=== PATIENT | female | born 1980 ===

== ENCOUNTER 2023-08-31 10:30 | Emergency (ER) | payer OTHER, SELFPAY ==
--- NOTE | ~2023-08-31 | US_ITS ---
EXAMINATION: US ABDOMEN LIMITED CLINICAL INFORMATION: Right upper quadrant pain. COMPARISON: None available. TECHNIQUE: Real-time imaging of the right gallbladder and common bile duct. FINDINGS: GALLBLADDER: Multiple gallbladder polyps are seen the largest measuring 6 x 4 x 3 mm. The gallbladder is physiologically distended without evidence of stones, sludge, wall thickening or pericholecystic fluid. COMMON BILE DUCT: Normal in caliber measuring 0.5 cm in diameter. US/US abdomen limited IMPRESSION: Multiple gallbladder polyps the largest measuring 6 mm. Follow-up is recommended in one year.
--- NOTE | ~2023-08-31 | CT_ITS ---
EXAMINATION: CT ABDOMEN AND PELVIS WITHOUT CONTRAST CLINICAL INFORMATION: Upper abdominal pain COMPARISON: None available. TECHNIQUE: Multidetector volumetric imaging was performed from the superior aspect of the liver through the pubic symphysis. Sagittal and coronal reformatted images were obtained on the technologist's workstation. This CT examination was performed using dose optimization techniques as appropriate, variously including the following: *Automated exposure control *Adjustment of mA and/or kV according to patient size (this includes techniques or standardized protocols for targeted exams where dose is matched to indication/reason for exam; i.e. extremities or head) *Use of iterative reconstruction technique DLP: 412 mGy-cm FINDINGS: LUNG BASES: The visualized lung bases are unremarkable. LIVER, GALLBLADDER, AND BILIARY TREE: The liver is normal in size, shape, and attenuation. No focal hepatic lesion or biliary ductal dilatation is present. There appears to be multiple stones within the gallbladder. No gross gallbladder distention, wall thickening or inflammatory stranding seen. No biliary duct dilatation seen. PANCREAS: Question some mild peripancreatic inflammatory stranding and cannot exclude acute pancreatitis. No focal fluid collections or abscess seen. SPLEEN: Unremarkable. ADRENAL GLANDS: Unremarkable. KIDNEYS AND URETERS: The kidneys are normal in size, shape, and attenuation. No hydronephrosis, hydroureter, or calculi seen. No perinephric stranding. BLADDER: Unremarkable. GASTROINTESTINAL TRACT: The small and large bowel are unremarkable. The appendix is unremarkable. ABDOMINAL WALL: No significant hernia is appreciated. LYMPH NODES: Normal. VASCULAR: Unremarkable. PELVIC VISCERA: Enlarged fibroid uterus. OSSEOUS STRUCTURES: Unremarkable. CT/CT abdomen pelvis wo IV con IMPRESSION: 1. Question some mild peripancreatic inflammatory stranding and cannot exclude acute pancreatitis. No focal fluid collections or abscess seen. 2. Cholelithiasis. No evidence of acute cholecystitis. 3. Enlarged fibroid uterus.
[2023-08-31 11:30] VITALS: BP 124/74; PULSE 103; RESP 18; TEMP 37.1; O2SAT 99; BMI 21.9
--- NOTE | 2023-08-31 11:31 | ED_ITS ---
HPI - Nausea/Vomiting/Diarrhea General Chief complaint: Nausea/Vomiting/Diarrhea Stated complaint: Upper Abd Pain Vomiting Time Seen by Provider: 08/31/23 21:31 Source: patient Mode of arrival: ambulatory Limitations: no limitations History of Present Illness HPI Narrative: Patient Been having upper abdominal pain with nausea vomiting diarrhea since yesterday unable to eat much no history of similar pain in the past no fever no chills urinary symptoms no alcohol use no history of pancreatitis in the past Related Data Previous Rx's ?Medication ?Instructions ?Recorded ondansetron 4 mg disintegrating 4 mg PO Q6-8H PRN nausea and 09/01/23 tablet vomiting #10 tabs Allergies Allergy/AdvReac Type Severity Reaction Status Date / Time No Known Allergies Allergy Verified 08/31/23 11:32 Review of Systems 2 Review of Systems: Yes all other systems are reviewed and are negative [facility] Social History Social History Smoked in Last 30 Days: No Use of substances other than those prescribed or required for medical reasons: No Advance Directives: No Advance Directives Information Provided: No Patient : No Physical Exam 2 Vital Signs: Vital Signs: Last Vital Signs Temp 98.0 F 08/31/23 22:00 Pulse 85 08/31/23 22:00 Resp 16 08/31/23 22:00 BP 119/66 08/31/23 22:00 Pulse Ox 100 08/31/23 22:00 O2 Del Method Room Air 08/31/23 22:00 BMI result Body Mass Index 21.9 Appearance: Alert. Oriented X3. No acute distress. Eyes:no pallor or icterus ENT: Pharynx normal. Oral Mucosa moist Neck: Normal inspection. Neck supple. CVS: Normal heart rate and rhythm. Pulses normal. Respiratory: No respiratory distress. Equal air entry bilateral, no wheezing/rales/rhonchi Abdomen: Soft tender in epigastric and right upper quadrant with guarding no rebound tenderness Bowel sounds are present, no mass palpable, no CVA tenderness Skin: Skin warm and dry. Normal skin color. Normal skin turgor. Extremities: No lower extremity edema. No calf tenderness Neuro: Oriented X 3. No motor deficit. Course Course Course Narrative: RME:?42 yo female hx of colitis here for eval of epigastric abd pain with assoc nausea and vomiting that began yesterday. denies chance of , s/p hysterectomy. denies fever. denies sick contacts. no recent abx. labs, serology, hcg ordered Full HPI, ROS and PE to be performed by the primary ED provider. Medications Administered Discontinued Medications Generic Name Dose Route Start Last Admin Trade Name Freq PRN Reason Stop Dose Admin Acetaminophen 650 mg 08/31/23 16:28 08/31/23 16:35 Acetaminophen 325 Mg Tablet PO 08/31/23 16:29 650 mg ONCE ONE Administration Famotidine 20 mg 08/31/23 21:38 08/31/23 22:04 Famotidine/Pf 20 Mg/2 Ml Vial IVPUSH 08/31/23 21:39 20 mg ONCE ONE Administration Sodium Chloride 1,000 mls @ 999 mls/hr 08/31/23 21:38 08/31/23 23:46 Ns IV 08/31/23 22:38 Infused .Q1H1M ONE Infusion Ketorolac Tromethamine 30 mg 08/31/23 21:38 08/31/23 22:04 Ketorolac Tromethamine 30 Mg/Ml Vial IVPUSH 08/31/23 21:39 30 mg ONCE ONE Administration Medical Decision Making Medical Decision Making [facility] Narrative: Patient with upper abdominal pain with nausea vomiting possibility of gallstones/gastroenteritis/pancreatitis with no history of same in the past CT scan shows right inflammation of the pancreas but lipase level was normal ultrasound done which negative for gallstones showed some polyps no signs of acute cholecystitis patient feeling much better after IV hydration liver enzymes are normal CBC normal Differential Diagnosis Differential Diagnoses: The differential diagnosis associated with the presentation includes Cholecystitis/pancreatitis/cholelithiasis/UTI Admission/Observation Consideration of admission/observation: Escalation of care including admission/observation considered Lab Data [facility] Lab Attestation statement: I reviewed the patient's lab results. 08/31/23 11:51 08/31/23 11:51 Labs: Lab Results 08/31/23 08/31/23 Range/Units 11:51 16:36 WBC 8.9 (4.8-10.8) X10*3/uL RBC 4.04 L (4.20-5.50) X10*6/uL Hgb 10.3 L (12.0-16.0) g/dl Hct 32.5 L (37.0-47.0) % MCV 80.4 (80.0-98.0) fL MCH 25.5 L (27.0-33.0) pg MCHC 31.7 (31.0-35.0) g/dl RDW 16.3 H (11.0-16.0) % Plt Count 421 H (160-400) X10*3/uL MPV 9.9 (9.4-12.3) fL Immature Gran % (Auto) 0.6 H (0.0-0.4) % Neut % (Auto) 83.1 H (45-73) % Lymph % (Auto) 9.0 L (20-40) % [place] % (Auto) 7.0 (2-11) % Eos % (Auto) 0.1 (0-4) % Baso % (Auto) 0.2 (0-2) % Lymph # (Auto) 0.8 L (1.2-4.9) X10*3/uL [place] # (Auto) 0.6 (0.1-1.2) X10*3/uL Eos # (Auto) 0.0 (0.0-0.4) X10*3/uL Baso # (Auto) 0.0 (0.0-0.2) X10*3/uL Abs Immat Gran (auto) 0.05 H (0.00-0.03) X10*3/uL Absolute Neuts (auto) 7.4 (2.0-8.3) x10*3/uL Absolute Nucleated RBC 0.000 (0.0-0.012) X10*3/uL Nucleated RBC % (auto) 0.0 (0.0-0.2) /100WBC Sodium 138 (135-145) mmol/L Potassium 3.7 (3.3-5.1) mmol/L Chloride 106 (96-108) mmol/L Carbon Dioxide 24 (22-29) mmol/L Anion Gap 12 (12-20) BUN 14 (9-16) mg/dL Creatinine 0.82 (0.5-1.4) mg/dL Estim Creat Clear Calc 87.7 Estimated GFR > 60 Random Glucose 98 (60-115) mg/dL Calcium 9.0 (8.4-10.2) mg/dL Magnesium 2.1 (1.6-2.6) mg/dL Total Bilirubin 0.4 (0.0-1.0) mg/dL AST 13 (5-31) U/L ALT 14 (0-31) U/L Alkaline Phosphatase 74 (39-117) U/L Total Protein 8.1 H (6.5-8.0) g/dL Albumin 4.3 (3.5-5.0) g/dL Lipase 13 (8-78) U/L Beta HCG, Quant < 2 mIU/mL Urine Color Yellow Urine Appearance Clear Urine pH 5.5 (5.0-9.0) Ur Specific [place] >= 1.030 H (1.005-1.025) Urine Protein Trace (Neg-Trace) mg/dL Urine Glucose (UA) Negative (Negative) mg/dL Urine Ketones Trace (Negative) mg/dL Urine Blood Negative (Negative) Urine Nitrite Negative (Negative) Ur Leukocyte Esterase Negative (Negative) Influenza Type A (PCR) NEGATIVE (Negative) Influenza Type B (PCR) NEGATIVE (Negative) RSV RNA Qual (PCR) NEGATIVE (Negative) SARS-CoV-2 RNA (RT-PCR) NEGATIVE (Negative) Independent Interpretation I performed an independent interpretation of an: Ultrasound and CT Scan Interpretation: Ultrasound negative for gallstones showed polyps US/US abdomen limited IMPRESSION: Multiple gallbladder polyps the largest measuring 6 mm. Follow-up is recommended in one year. Radiology Impression Discussion of test interpretation with radiology: I have reviewed the radiologist's reading. Radiologist Impression: CT/CT abdomen pelvis wo IV con IMPRESSION: 1. Question some mild peripancreatic inflammatory stranding and cannot exclude acute pancreatitis. No focal fluid collections or abscess seen. 2. Cholelithiasis. No evidence of acute cholecystitis. 3. Enlarged fibroid uterus. Discharge Plan Discharge Clinical Impression: Gastroenteritis, Biliary colic Patient Disposition: Home, Self-Care Instructions: Biliary Colic (ED), Gastroenteritis (ED) Additional Instructions: Drink plenty of fluids Avoid fried food Your gallbladder showed some polyps but no gallstones If you have pain in right upper abdomen may have to follow with surgeon Follow-up with your PCP/surgeon in 1 year to recheck the size of the polyp in your gallbladder Prescriptions: New ondansetron 4 mg tablet,disintegrating 4 mg PO Q6-8H PRN (Reason: nausea and vomiting) Qty: 10 0RF Referrals: Balaji Miranda MD [Physician] - 2 weeks Print Language: Ugandan
[2023-08-31 11:56] LABS: MANUAL DIFF FLAG NO
[2023-08-31 12:04] LABS: Basophils Percent Auto 0.2 % (0-2); Eosinophils Percent Auto 0.1 % (0-4); Hematocrit 32.5 % (37.0-47.0); Hemoglobin 10.3 g/dl (12.0-16.0); Imm Gran Abs Auto 0.05 X10*3/uL (0.00-0.03); Imm Gran Pct Auto 0.6 % (0.0-0.4); Lymphocytes Absolute Auto 0.8 X10*3/uL (1.2-4.9); Mean Corpuscular HGB Conc 31.7 g/dl (31.0-35.0); Mean Corpuscular Hemoglobin 25.5 pg (27.0-33.0); Mean Corpuscular Volume 80.4 fL (80.0-98.0); Mean Platelet Volume 9.9 fL (9.4-12.3); Monocytes Absolute Auto 0.6 X10*3/uL (0.1-1.2); Neutrophils Absolute Auto 7.4 x10*3/uL (2.0-8.3); Neutrophils Percent Auto 83.1 % (45-73); Platelet Count 421 X10*3/uL (160-400); Red Blood Count 4.04 X10*6/uL (4.20-5.50); Red Cell Distribution Width 16.3 % (11.0-16.0); White Blood Count 8.9 X10*3/uL (4.8-10.8)
[2023-08-31 12:21] LABS: Alanine Aminotransferase 14 U/L (0-31); Albumin Level 4.3 g/dL (3.5-5.0); Alkaline Phosphatase 74 U/L (39-117); Anion Gap 12 (12-20); Aspartate Amino Transferase 13 U/L (5-31); Bilirubin Total 0.4 mg/dL (0.0-1.0); Blood Urea Nitrogen 14 mg/dL (9-16); Carbon Dioxide 24 mmol/L (22-29); Chloride 106 mmol/L (96-108); Creatinine Clr Calc Pharmacy 87.7; Estimated Glomerular Filt Rate > 60; Glucose Random 98 mg/dL (60-115); Lipase 13 U/L (8-78); Magnesium 2.1 mg/dL (1.6-2.6); Potassium 3.7 mmol/L (3.3-5.1); Sodium 138 mmol/L (135-145); Total Protein 8.1 g/dL (6.5-8.0)
[2023-08-31 12:23] LABS: HCG Quantitative < 2 mIU/mL
[2023-08-31 12:43] LABS: Influenza A PCR NEGATIVE (Negative); Influenza B PCR NEGATIVE (Negative); Resp Syncy Virus RNA Qual PCR NEGATIVE (Negative); SARS COV2 PCR INHOUSE NEGATIVE (Negative)
[2023-08-31 16:27] VITALS: BP 134/61; PULSE 90; RESP 16; TEMP 36.9; O2SAT 100
[2023-08-31] MEDS: Acetaminophen 325 MG TABLET 650 MG PO (16:35)
[2023-08-31 16:43] LABS: Appearance Urine Clear; Color Urine Yellow; Glucose Urine UA Negative (Negative); Leukocyte Esterase Urine Negative (Negative); Nitrite Urine Negative (Negative); PH 5.5 (5.0-9.0); Specific Gravity - Urine >= 1.030 (1.005-1.025); Urine Blood Negative (Negative); Urine Ketones Trace mg/dL (Negative); Urine Protein Trace mg/dL (Neg-Trace)
[2023-08-31 21:10] VITALS: BP 111/66; PULSE 89; RESP 20; TEMP 36.8; O2SAT 98
[2023-08-31 22:00] VITALS: BP 119/66; PULSE 85; RESP 16; TEMP 36.7; O2SAT 100
[2023-08-31] MEDS: Famotidine/PF 20 MG/2 ML VIAL IVPUSH (22:04)
[2023-08-31] MEDS: Ketorolac Tromethamine 30 MG/ML VIAL IVPUSH (22:04)
[2023-08-31] MEDS: 0.9 % Sodium Chloride 1,000 ML 999 ML IV (22:05)
--- NOTE | 2023-08-31 22:13 | PC.NURSE ---
this rn placed 20g iv in r ac pt tolerated well pt medicated according to roula pt remains in hallway bed pt friend at bedside
[2023-09-01 00:36] VITALS: BP 118/70; PULSE 86; RESP 16; TEMP 36.7; O2SAT 100
== END 2023-09-01 00:45 | disposition home or self-care (01) ==
PROVIDERS: Physician Assistant Medical; Emergency Provider Internal Medicine
DX: K52.9 Noninfective gastroenteritis and colitis, unspecified (principal); K80.50 Calculus of bile duct without cholangitis or cholecystitis without obstruction; R11.2 Nausea with vomiting, unspecified; R93.49 Abnormal radiologic findings on diagnostic imaging of other urinary organs; R10.2 Pelvic and perineal pain; Z11.52 Encounter for screening for COVID-19; Z20.822 Contact with and (suspected) exposure to COVID-19; Z79.899 Other long term (current) drug therapy
CPT/HCPCS: 0241U; 74176; 76705; 80053; 81003; 83690; 83735; 84702; 85025; 96361; 96374; 96375; 99284; J1885

== ENCOUNTER 2023-12-13 10:38 | Outpatient (AMB) | payer OTHER, SELFPAY ==
--- NOTE | 2023-12-13 10:40 | MHC.OFFVIS ---
Vital Signs 12/13/23 10:46 Height 5 ft 7 in Weight 146 lb BMI 22.9 BP 134/83 Blood Pressure Location Rt brachial Position Sitting Pulse 88 Intake Visit Reasons: Gallbladder polyp Intake Note: Patient referred after ER visit in August. Patient c/o: pain on and off. Acid reflux. ABD US and CT: 08-31-2023. Certified Surgical Technician Required: Yes Certified Surgical Technician Name: Shalini DICKEY Accompanied by: Self / Same As Patient Allergies No Known Allergies Allergy (Verified 12/13/23 10:46) HPI Comments Details: PATIENT PRESENTS BECAUSE OF INCIDENTAL FINDING OF GALLBLADDER POLYPS. SHE WAS WORKED UP IN THE EMERGENCY DEPARTMENT FOR EPIGASTRIC DISCOMFORT/HEARTBURN symptoms and had ultrasound and CT scan. The former demonstrated gallbladder polyps. Radiologic recommendation is for follow-up ultrasound of gallbladder polyps and 1 year's time. In the meantime, patient was tolerating her diet. He is having regular bowel habits. Still has epigastric discomfort/heartburn symptoms. She has never seen a refuse and recycling worker for this. Chart was reviewed and patient developed Physical Exam Vital Signs: Last Vital Signs Pulse 88 12/13/23 10:46 BP 134/83 12/13/23 10:46 BMI result Body Mass Index 22.9 GI Other: Abdomen mildly corpulent, soft, benign Assessment & Plan Assessment & Plan (1) Gallbladder polyp: Code(s): K82.4 - Cholesterolosis of gallbladder Category: Surgical (2) Heartburn: Code(s): R12 - Heartburn Category: Surgical Plan 1. Current plan is to arrange for follow-up sonogram of gallbladder in 1 year's time. 2. Will arrange for patient to have gastroenterologic consult regarding her epigastric symptoms. All questions answered. Patient will see me as noted above or p.r.n.. Coding Level of Care Code New Pt Level 4 (82278) Diagnoses Gallbladder polyp K82.4 Heartburn R12
[2023-12-13 10:46] VITALS: BP 134/83; PULSE 88; BMI 22.9
== END 2023-12-13 11:07 | disposition home or self-care (01) ==
PROVIDERS: Visit Provider Surgery
DX: K82.4 Cholesterolosis of gallbladder (principal); R12 Heartburn
CPT/HCPCS: 99203

== ENCOUNTER → 2023-12-13 10:38 | Outpatient (BNVA) | payer OTHER, SELFPAY | PROVIDERS: Visit Provider Surgery ==

== ENCOUNTER 2024-04-23 10:17 | Outpatient (REF) | payer OTHER, SELFPAY ==
[2024-04-23 14:02] LABS: Hematocrit 29.4 % (37.0-47.0); Hemoglobin 9.6 g/dl (12.0-16.0); Mean Corpuscular HGB Conc 32.7 g/dl (31.0-35.0); Mean Corpuscular Volume 79.7 fL (80.0-98.0); Mean Platelet Volume 10.5 fL (9.4-12.3); Platelet Count 470 X10*3/uL (160-400); Red Blood Count 3.69 X10*6/uL (4.20-5.50); Red Cell Distribution Width 16.9 % (11.0-16.0); White Blood Count 8.3 X10*3/uL (4.8-10.8)
[2024-04-23 14:50] LABS: C Reactive Protein 0.21 mg/dL (< or = 0.50)
[2024-04-23 14:58] LABS: TSH reflex Free T4 2.56 uIU/mL (0.32-4.0)
[2024-04-24 07:42] LABS: Immunoglobulin A 289 mg/dL (47-310)
[2024-04-24 14:58] LABS: Transglutaminase IgA <1.0 U/mL
== END 2024-04-23 10:18 | disposition home or self-care (01) ==
LOC: HO.LAB 10:17
PROVIDERS: Visit Provider Internal Medicine
DX: R19.4 Change in bowel habit (principal)
CPT/HCPCS: 36415; 82784; 84443; 85027; 86140; 86364

== ENCOUNTER 2024-04-23 10:17 | Outpatient (AMB) | payer OTHER, SELFPAY ==
--- NOTE | 2024-04-23 10:37 | MHC.OFFVIS ---
Vital Signs 04/23/24 10:39 Height 5 ft 7 in Weight 145 lb 8.081 oz BMI 22.8 BP 130/73 Blood Pressure Location Lt brachial Position Sitting Pulse 100 Intake Visit Reasons: Gastroesophageal reflux disease (GERD) Intake Note: Olga presents in the office as a new patient for GERD. CC: She states that she has a lot of GERD. She states that she has pains in her uterus and some days her stomach is bloated like she is . She states sometimes she will have diarrhea and other times constipation and she has had this for years. Supervisor Partial Denture Department Required: Yes Allergies No Known Allergies Allergy (Verified 04/23/24 10:39) HPI Comments Details: 43 y.o F with PMH of GB polyp who has been referred to GI for following. Pt seens with manager billing. Reports years of mid abd pain with bloating since her hysterectomy which has been getting worse for the past 5 years. Had EGD/colo 9 years ago for GERD and rectal bleeding - was told had esophagitis and HH. Now main issue is post prandial abd pain and bloating. Has pictures before and after bloating which are quite dramatic. Has decreased the amount of food she eats to prevent bloating which hasnt helped. No specific foods identified as triggers. Assoc with fluctuating BMs between constipation and diarrhea. Also describes lower abd pain which gets worse with her menstrual cycle. At that time also notices constipation. CT Abd/pel reviewed: fibroid uterus. No diverticulosis noted. Fam hx: Mat grandmother: CRC at age 80s Father: CRC at age 60 PFSH Surgical History (Updated 04/23/24 @ 10:40 by NOBLE Grimes) Hx of colonoscopy History of esophagogastroduodenoscopy (EGD) Family History (Updated 04/23/24 @ 10:40 by NOBLE Grimes) Paternal Grandmother Colon cancer Father Colon cancer Mother Breast cancer Review of Systems Const All systems reviewed & are unremarkable except as noted in HPI and below Physical Exam Vital Signs: Last Vital Signs Pulse 100 04/23/24 10:39 BP 130/73 04/23/24 10:39 BMI result Body Mass Index 22.8 No apparent distress Nonicteric Abdomen soft, nondistended Alert and oriented x3, normal gait Assessment & Plan Assessment & Plan (1) Heartburn: Code(s): R12 - Heartburn Category: Surgical (2) Change in bowel habit: Code(s): R19.4 - Change in bowel habit Category: Medical (3) Family history of colon cancer: Code(s): Z80.0 - Family history of malignant neoplasm of digestive organs Category: Medical Plan Ddx: GERD, PUD, EoE [place] for upper GI sx. In context of altered bowel habits will also have to take IBD, celiac, malabsorption, SIBO in consideration. Pt also has fam hx of CRC and overdue for colo. Plan: - Omeprazole 20mg once daily empirically for GERD/gastritis/duodenitis - Rifaximin 550 BID for bloating r/o SIBO - Barium swallow - Labs as below - EGD/colo to be booked - PEG prep Rxed and instructions reviewed with the pt. Follow up after scopes Orders: Orders [place] barium swallow Today R12 - Heartburn Calprotectin, Fecal Today R19.4 - Change in bowel habit C Reactive Protein Today R19.4 - Change in bowel habit Immunoglobulin A Today R19.4 - Change in bowel habit TSH reflex Free T4 Today R19.4 - Change in bowel habit Complete Blood Count no Diff Today R19.4 - Change in bowel habit Transglutaminase IgA Today R19.4 - Change in bowel habit Medications: New omeprazole 20 mg PO DAILY 90 days 90 caps 1RF rifaximin 550 mg PO BID 14 days 28 tabs 0RF R14.0 - Abdominal distension (gaseous) peg 3350-electrolytes 236-22.74-6.74 -5.86 gram (Golytely) as per split prep instructions, until fecal effluent is clear 240 mL PO Q10M 4,000 mL 0RF colonoscopy Coding Level of Care Code New Pt Level 4 (00525) Diagnoses Heartburn R12 Change in bowel habit R19.4 Family history of colon cancer Z80.0
[2024-04-23 10:39] VITALS: BP 130/73; PULSE 100; BMI 22.8
== END 2024-04-23 11:48 | disposition home or self-care (01) ==
PROVIDERS: Visit Provider Internal Medicine
DX: R12 Heartburn (principal); R19.4 Change in bowel habit; Z80.0 Family history of malignant neoplasm of digestive organs
CPT/HCPCS: 99204

== ENCOUNTER 2024-12-23 15:50 | Emergency (ER) | payer BC, SELFPAY ==
--- NOTE | ~2024-12-23 | XR_ITS ---
CLINICAL HISTORY: Fever 1 view chest x-ray Comparison: None provided Findings: The lungs are clear. Heart size is normal. No acute fracture. IMPRESSION: 1. No acute findings. This document has been electronically signed by: Han Zuniga MD on 12/23/2024 19:11:31
[2024-12-23 15:54] VITALS: BP 106/58; BP 93/51; PULSE 86; PULSE 90; RESP 18; TEMP 36.5; O2SAT 100; O2SAT 97; BMI 22.7
--- NOTE | 2024-12-23 17:12 | ECG_ITS ---
Test Reason : palpitations Blood Pressure : */* mmHG Vent. Rate : 118 BPM Atrial Rate : 118 BPM P-R Int : 136 ms QRS Dur : 82 ms QT Int : 344 ms P-R-T Axes : 43 60 1 degrees QTcB Int : [address] & T wave abnormality, consider anterior ischemia Abnormal ECG No previous ECGs available Referred By: Ct [facility] Electronically Signed By: FELI MAYS
--- NOTE | 2024-12-23 17:24 | ED_ITS ---
HPI - General Adult General Chief complaint: Nausea/Vomiting/Diarrhea Stated complaint: dizzy, nausea Time Seen by Provider: 12/23/24 17:03 Source: patient and EMS Mode of arrival: EMS Limitations: no limitations History of Present Illness ED Provider: DR. Solitario [facility] narrative: 44-year-old female with otherwise healthy was seen earlier at the urgent care then was transferred to the hospital by ambulance for tachycardia and low blood pressure. 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 Related Data Previous Rx's ?Medication ?Instructions ?Recorded ondansetron 4 mg disintegrating 4 mg PO Q6-8H PRN naus ea and 09/01/23 tablet vomiting #10 tabs omeprazole 20 mg capsule,delayed 20 mg PO DAILY 90 day s #90 caps 04/23/24 release peg 3350-electrolytes 236 240 ml PO Q10M colonoscopy # 4,000 04/23/24 gram-22.74 gram-6.74 gram-5.86 mL gram solution (Golytely) rifaximin 550 mg tablet 550 mg PO BID 14 days #28 ta bs 04/23/24 Allergies Allergy/AdvReac Type Severity Reaction Status Date / Time No Known Allergies Allergy Verified 12/23/24 15:57 Review of Systems 2 Review of Systems: All other systems are reviewed and are negative Constitutional: Reports as per HPI and Reports no additional constitutional complaints Eyes: Reports as per HPI and Reports no additional eye complaints Reports system reviewed and no additional complaints, except as documented Cardiovascular: Reports as per HPI and Reports no additional cardiovascular complaints Respiratory: Reports as per HPI and Reports no additional respiratory complaints Gastrointestinal: Reports as per HPI and Reports no additional gastrointestinal complaints Genitourinary: Reports no additional female genitourinary complaints Musculoskeletal: Reports no additional musculoskeletal complaints Skin/Breast: Reports system reviewed and no additional complaints, except as docu Psychiatric: Reports no additional psychiatric complaints Endocrine: Reports no additional endocrine complaints Hematologic/Lymphatic: Reports no additional hematologic/lymphatic complaints Allergic/Immunologic: Reports no additional allergic/immunologic complaints Reports system reviewed and no additional complaints, except as documented and Reports Abnormal speech present [facility] Past Medical History Surgical History Hx of colonoscopy History of esophagogastroduodenoscopy (EGD) Family History Family History Paternal Grandmother Colon cancer Father Colon cancer Mother Breast cancer Social History Social History Advance Directives: No Advance Directives Information Provided: No Physical Exam ED Vital Signs: Vital Signs - 24 hr 12/23/24 15:54 Temperature 97.7 F Pulse Rate 86 Respiratory Rate 18 Blood Pressure 93/51 L Pulse Oximetry 97 Oxygen Delivery Method Room Air BMI result Body Mass Index 22.7 Vital signs have been reviewed and appear to be correct. Blood pressure elevated. Heart rate normal. Respiratory rate normal. Temperature normal. Oxygen saturation normal. Appearance: Alert. Oriented X3. No acute distress. Head: Normal external exam. Normocephalic. Atraumatic. No Lockwood signs noted. No raccoon eyes noted Eyes: PERRLA. EOMI. Conjunctiva and sclera normal. Eyelids normal. ENT: TM's Normal. Pharynx normal. Uvula midline. Moist mucous membranes. No trismus noted. No drooling noted. No muffled voice noted. Neck: Normal inspection. Neck supple. FROM. No adenopathy. Thyroid Normal. No meningeal signs. No neck mass noted. CVS: Normal heart rate and rhythm. Heart sound normal. No murmurs noted. Pulses normal throughout. Respiratory: No respiratory distress. Painless inspiration. Breath sounds normal. No wheezes/rales/rhonchi noted. Chest nontender. No accessory muscle usage noted or decreased air movement noted. Abdomen: Soft and nontender. Bowel sounds normal in all 4 quadrants. No distention noted. No organomegaly noted. No visible injury noted. Back: No CVA tenderness. Full range of motion noted. Skin: Skin warm and dry. Normal skin color. Normal skin turgor. No rashes/lesions/lacerations noted. Extremities: No lower extremity edema. Extremities exhibit normal range of motion. Extremities nontender. Neuro: Oriented X 3. Cranial nerve exam: II-XII are grossly intact No motor deficit. No sensory deficit. Reflexes normal. Course Reevaluation(s) Reevaluation #1: 44-year-old female came in with upper respiratory symptoms of generalized body ache, sore throat, fever, chills, patient is positive for COVID-19 today. Improvement of tachycardia and palpitation with IV hydration. Time: 18:56 Medications Administered Discontinued Medications Generic Name Dose Route Start Last Admin Trade Name Freq PRN Reason Stop Dose Admin Lactated Ringer's 1,000 mls @ 999 mls/hr 12/23/24 17:15 12/23/24 18:03 Lr IV 12/23/24 18:15 999 mls/hr .Q1H1M VIRGEN Administration Medical Decision Making Differential Diagnosis Differential Diagnoses: The differential diagnosis associated with the presentation includes (Pneumonia, pneumothorax, pleural effusion, severe anemia, , UTI, COVID-19 infection, strep pharyngitis, influenza.) Admission/Observation Consideration of admission/observation: Escalation of care including admission/observation considered Lab Data MDM Lab Attestation statement: I reviewed the patient's lab results. 12/23/24 17:57 12/23/24 17:57 Labs: Lab Results 12/23/24 12/23/24 Range/Units 17:57 18:01 WBC 14.1 H (4.8-10.8) X10*3/uL RBC 4.19 L (4.20-5.50) X10*6/uL Hgb 9.0 L (12.0-16.0) g/dl Hct 28.9 L (37.0-47.0) % MCV 69.0 L (80.0-98.0) fL MCH 21.5 L (27.0-33.0) pg MCHC 31.1 (31.0-35.0) g/dl RDW 19.1 H (11.0-16.0) % Plt Count 420 H (160-400) X10*3/uL MPV 9.6 (9.4-12.3) fL Immature Gran % (Auto) Cancelled Neut % (Auto) Cancelled Lymph % (Auto) Cancelled Johnson % (Auto) Cancelled Eos % (Auto) Cancelled Baso % (Auto) Cancelled Lymph # (Auto) Cancelled Johnson # (Auto) Cancelled Eos # (Auto) Cancelled Baso # (Auto) Cancelled Abs Immat Gran (auto) Cancelled Absolute Neuts (auto) Cancelled Absolute Nucleated RBC 0.000 (0.0-0.012) X10*3/uL Nucleated RBC % (auto) 0.0 (0.0-0.2) /100WBC Neutrophils % (Manual) 87 H (45-73) % Band Neutrophils % 8 H (3-5) % Lymphocytes % (Manual) 2 L (20-40) % Monocytes % (Manual) 3 (2-11) % Abs Neuts (Manual) 13.4 H (2.0-8.3) X10*3/uL Lymphocytes # (Manual) 0.3 L (1.2-4.9) X10*3/uL Monocytes # (Manual) 0.4 (0.1-1.2) X10*3/uL Platelet Estimate SLIGHTLY INCREASED (NORMAL) Plt Morphology Comment NORMAL RBC Morphology NOTED Macrocytosis 1+ (5-14) /OIF Schistocytes 1+ (0-2) /OIF Smear Tech's Comments MANUAL DIFF Sodium 138 (135-145) mmol/L Potassium 3.4 (3.3-5.1) mmol/L Chloride 108 (96-108) mmol/L Carbon Dioxide 21 L (22-29) mmol/L Anion Gap 12 (12-20) BUN 14 (9-16) mg/dL Creatinine 0.87 (0.5-1.4) mg/dL Estim Creat Clear Calc 81.0 Estimated GFR > 60 Random Glucose 156 H (60-115) mg/dL Calcium 8.8 (8.4-10.2) mg/dL Total Bilirubin 0.2 (0.0-1.0) mg/dL Direct Bilirubin < 0.2 (0.0-0.5) mg/dL AST 19 (5-31) U/L ALT 17 (0-31) U/L Alkaline Phosphatase 85 (39-117) U/L Troponin I High Sens 4.3 (<3.5-17.0) ng/L B-Natriuretic Peptide 17 (<100) pg/mL Total Protein 8.1 H (6.5-8.0) g/dL Albumin 4.6 (3.5-5.0) g/dL Lipase 29 (8-78) U/L Urine Color Yellow Urine Appearance Clear Urine pH 5.5 (5.0-9.0) Ur Specific [place] >= 1.030 H (1.005-1.025) Urine Protein Trace (Neg-Trace) mg/dL Urine Glucose (UA) Negative (Negative) mg/dL Urine Ketones Trace (Negative) mg/dL Urine Blood Negative (Negative) Urine Nitrite Negative (Negative) Ur Leukocyte Esterase Negative (Negative) Urine Test NEGATIVE (NEGATIVE) Influenza Type A (PCR) NEGATIVE (Negative) Influenza Type B (PCR) NEGATIVE (Negative) RSV RNA Qual (PCR) NEGATIVE (Negative) SARS-CoV-2 RNA (RT-PCR) POSITIVE A (Negative) S. pyogenes GrpA JONNIE Negative (Negative) Independent Interpretation I performed an independent interpretation of an: Plain X-Ray (Chest: No acute intrathoracic pathology) Radiology Impression Discussion of test interpretation with radiology: I have reviewed the radiologist's reading. Discharge Plan Discharge Clinical Impression: COVID-19 virus infection Patient Disposition: Home, Self-Care Instructions: COVID-19 (Coronavirus Disease 2019) (ED) Additional Instructions: Self quarantine for 5 days, wear face mask at all times, frequent hand washing. Prescriptions: No Action ondansetron 4 mg tablet,disintegrating 4 mg PO Q6-8H PRN (Reason: nausea and vomiting) Qty: 10 0RF omeprazole 20 mg capsule,delayed release(DR/EC) 20 mg PO DAILY 90 Days Qty: 90 1RF rifaximin 550 mg tablet 550 mg PO BID 14 Days Qty: 28 0RF peg 3350-electrolytes [Golytely] 236-22.74-6.74 -5.86 gram recon soln 240 ml PO Q10M Qty: 4000 0RF Rx Instructions: as per split prep instructions, until fecal effluent is clear Stand Alone Forms: Work/School Release Print Language: Mozambican
[2024-12-23] MEDS: Lactated Ringers 1,000 ML 999 ML IV (18:03)
[2024-12-23 18:13] LABS: Hematocrit 28.9 % (37.0-47.0); Hemoglobin 9.0 g/dl (12.0-16.0); Mean Corpuscular HGB Conc 31.1 g/dl (31.0-35.0); Mean Corpuscular Hemoglobin 21.5 pg (27.0-33.0); Mean Corpuscular Volume 69.0 fL (80.0-98.0); NRBC Abs Auto 0.000 X10*3/uL (0.0-0.012); NRBC Pct Auto 0.0 /100WBC (0.0-0.2); Platelet Count 420 X10*3/uL (160-400); Red Blood Count 4.19 X10*6/uL (4.20-5.50); White Blood Count 14.1 X10*3/uL (4.8-10.8)
[2024-12-23 18:14] LABS: Appearance Urine Clear; Glucose Urine UA Negative (Negative); PH 5.5 (5.0-9.0); Specific Gravity - Urine >= 1.030 (1.005-1.025)
[2024-12-23 18:16] LABS: UPreg QC Valid YES
[2024-12-23 18:21] LABS: IDNOW Serial# 55D5AD1C; Strep A Nucleic Acid Negative (Negative)
[2024-12-23 18:35] LABS: B Type Natriuretic Peptide 17 pg/mL (<100)
[2024-12-23 18:38] LABS: Troponin-I High Sensitivity 4.3 ng/L (<3.5-17.0)
[2024-12-23 18:44] LABS: Alanine Aminotransferase 17 U/L (0-31); Albumin Level 4.6 g/dL (3.5-5.0); Alkaline Phosphatase 85 U/L (39-117); Anion Gap 12 (12-20); Aspartate Amino Transferase 19 U/L (5-31); Blood Urea Nitrogen 14 mg/dL (9-16); Calcium 8.8 mg/dL (8.4-10.2); Carbon Dioxide 21 mmol/L (22-29); Chloride 108 mmol/L (96-108); Creatinine Clr Calc Pharmacy 81.0; Estimated Glomerular Filt Rate > 60; Lipase 29 U/L (8-78); Potassium 3.4 mmol/L (3.3-5.1); Sodium 138 mmol/L (135-145); Total Protein 8.1 g/dL (6.5-8.0)
[2024-12-23 18:45] LABS: Band Neutrophils Percent 8 % (3-5); Lymphocytes Absolute Manual 0.3 X10*3/uL (1.2-4.9); Lymphocytes Percent Manual 2 % (20-40); Macrocytosis 1+ (5-14) /OIF; Monocytes Absolute Manual 0.4 X10*3/uL (0.1-1.2); Monocytes Percent Manual 3 % (2-11); Neutrophils Absolute Manual 13.4 X10*3/uL (2.0-8.3); Neutrophils Percent Manual 87 % (45-73); RBC Morphology NOTED; Schistocytes 1+ (0-2) /OIF
[2024-12-23 18:49] LABS: Resp Syncy Virus RNA Qual PCR NEGATIVE (Negative); SARS COV2 PCR INHOUSE POSITIVE (Negative)
[2024-12-23 19:08] LABS: Thyroid Stimulating Hormone 1.27 uIU/mL (0.32-4.0)
[2024-12-23 20:44] VITALS: BP 118/63; PULSE 105; RESP 18; TEMP 37.2; O2SAT 100
== END 2024-12-23 20:30 | disposition home or self-care (01) ==
PROVIDERS: Emergency Provider Emergency Medicine
DX: U07.1 COVID-19 (principal); R42 Dizziness and giddiness; R11.2 Nausea with vomiting, unspecified; R00.2 Palpitations
CPT/HCPCS: 36415; 71045; 80048; 80076; 81003; 81025; 83690; 83880; 84443; 84484; 85007; 85027; 87637; 87651; 93005; 96360; 99284; 99285; J7120

== ENCOUNTER → 2024-12-23 17:12 | Outpatient (BNV) | payer BC, SELFPAY | PROVIDERS: Emergency Provider Emergency Medicine; Visit Provider Internal Medicine | DX: R00.0 Tachycardia, unspecified (principal) | CPT/HCPCS: 93010 ==

== ENCOUNTER → 2024-12-23 18:57 | Outpatient (BNV) | payer BC, SELFPAY | PROVIDERS: Emergency Provider Emergency Medicine; Visit Provider Radiology Diagnostic Radiology | DX: R50.9 Fever, unspecified (principal) | CPT/HCPCS: 71045 ==

== ENCOUNTER 2025-05-20 12:51 | Outpatient (AMB) | payer BC, SELFPAY ==
--- NOTE | 2025-05-20 12:57 | A.OFFPC_ITS ---
Vital Signs 05/20/25 12:58 Height 5 ft 7 in Weight 148 lb BMI 23.2 BP 138/80 Blood Pressure Location Lt brachial Position Sitting Respiration 16 Temp 97.7 F Temp Source Temporal Artery Scan Comment unable to get O2 and HR due to fake nails Intake Visit Reasons: [employer] // back pain, fibroma Frame Hand Required: No Accompanied by: Self / Same As Patient Allergies No Known Allergies Allergy (Verified 05/20/25 12:57) Medication List - Last Reconciled 05/20/25 by Eunice Yates MD omeprazole 20 mg PO DAILY PRN Tobacco use date assessed: 05/20/25 Dental Screening Dental Screen Date: 05/20/25 Did you have a dental visit in the last 12 months?: Yes Did you have a dental problem in the last 6 months where you did not have access to dental care?: No Was dental information given to patient?: Patient has dentist HPI HPI Comments History of Present Illness Details The patient is a 44 year old female with PMH of GERD, uterine fibroid, Gallblader polyps, anemia presenting to [facility] primary care. She reports a long-standing history of acid reflux, which has recently worsened, causing a burning sensation. She takes omeprazole as needed for relief. She is scheduled for a fluoroscopy tomorrow and is pending an EGD and colonoscopy with her GI specialist. She follows with An ultrasound and CT scan last year revealed multiple gallbladder polyps, with the largest measuring 6 mm, and an enlarged uterus with fibroids. A follow-up ultrasound for the polyps recommended for one year later has not been completed. She attributes significant abdominal bloating, abdominal pain, and back pain to her fibroids. The pain is severe during her menses and also occurs between periods, associated with leg pain. Past lab results indicate she has anemia, a diagnosis she was not previously aware of. She also has a history of colitis and low vitamin D, which was 11 on a previous test. The patient's last comprehensive lab work, including cholesterol, was about five years ago. Her mother has a history of breast cancer. She underwent a sterilization procedure at age 29 but still has regular menses. 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 1. Little interest or pleasure in doing things: not at all 2. Feeling down, depressed, or hopeless: several days 3. Trouble falling or staying asleep, or sleeping too much: not at all 4. Feeling tired or having little energy: not at all 5. Poor appetite or overeating: not at all 6. Feeling bad about yourself - or that you are a failure or have let yourself or your family down: not at all 7. Trouble concentrating on things, such as reading the newspaper or watching television: not at all 8. Moving or speaking so slowly that other people could have noticed. Or the opposite - being so fidgety or restless that you have been moving around a lot more than usual: not at all 9. Thoughts that you would be better off or of hurting yourself in some way: not at all Total score: 1 Source: Developed by Drs. Florentin Spencer, Daija Dean, Obi Reyna and colleagues, with an educational mireille from [employer]. Thrive Questionnaire Date Thrive assessed: 05/20/25 I am a: Patient What is your living situation today?: I have a steady place to live Within the past 12 months, did the food you bought not last and you didn't have the money to get more?: Never true Within the past 12 months, did you worry whether your food would run out before you got money to buy more?: Never true Do you have trouble paying for medicines?: No Do you have trouble getting transportation to medical appointments?: No Do you have trouble paying your heating and electricity bill?: No Do you have trouble taking care of your child, family member or friend?: No Do you have trouble with day-to-day activities such as bathing, preparing meals, shopping, managing finances, etc.?: No Are you currently unemployed and looking for a job?: No Are you interested in more education?: Yes Please select the resources that you would like help with: None Currently or been in a relationship where the following occur: No concerns reported THRIVE Score: 0 AUDIT C Alcohol Use Questionnaire (AUDIT-C) 1. How often do you have a drink containing alcohol?: Never 2. How many drinks containing alcohol do you have on a typical day when you are drinking?: 1 or 2 3. How often do you have six or more drinks on one occasion?: Never Total Score: 0 NIXON-7 AMB Questionnaire NIXON-7 Date NIXON - 7 assessed: 05/20/25 Feeling nervous, anxious, or on edge: 1 = Several days Not being able to stop or control worryin = Several days Worrying too much about different things: 2 = More than half the days Trouble relaxin = Several days Being so restless that it is hard to sit still: 0 = Not at all Becoming easily annoyed or irritable: 1 = Several days Feeling afraid as if something awful might happen: 0 = Not at all Total NIXON-7 score (0-4 normal; 5-9 mild; 10-14 moderate; 15-21 severe): 6 Source: Developed by Drs. Florentin Spencer, Daija Dean, Obi Reyna and colleagues, with an educational mireille from [employer]. Review of Systems Const Details: As per HPI. Physical exam (Primary Care) Vital Signs: Last Vital Signs Temp 97.7 F 05/20/25 12:58 Resp 16 05/20/25 12:58 BP 138/80 05/20/25 12:58 BMI result Body Mass Index 23.2 Tobacco/Smoking Status: Tobacco use Status Tobacco use date assessed 05/20/25 05/20/25 13:06 Patient Tobacco Use Status Never used Tobacco 05/20/25 13:06 Tobacco use type Cigarette 05/20/25 13:06 e-Cigarette/Vaping Use Never Used 05/20/25 13:06 PHQ-9: PHQ-9 Score PHQ-9: Total score 1 05/20/25 14:59 Thrive Assessment: Date of Thrive Assessment Date Thrive assessed 05/20/25 05/20/25 13:06 Currently or been in a relationship where the following occur: No concerns re ported Const Other: Pertinent findings are in BOLD GENERAL APPEARANCE NAD, activity normal for age, well developed/ well nourished, no cyanosis, pallor, or diaphoresis. EYES lids/conjunctiva normal. EARS/NOSE/THROAT Mucous membranes moist, nares normal, lips/teeth normal uvula midline without oral pharyngeal erythema, exudate or swelling TMs normal bilaterally. No lymphangitis/lymphedema. HEAD/NECK normocephalic atraumatic, no facial trauma, neck is supple. RESPIRATORY respiratory effort normal, speaks in full sentences, no tripod position, no accessory muscle use. Lungs clear to auscultation without rhonchi, wheezes, rales CARDIAC Regular rate and rhythm, no edema. ABDOMINAL Soft, ND/NT. No evidence of fluid wave. No pulsatile masses on exam, rebound tenderness, Kenny sign or pain over Mcburney's point. MUSCLES/EXTREMITIES No abnormal range of motion, no swelling. SKIN Warm, pink and dry. No rashes, dermatoses, petechiae or lesions. NEUROLOGICAL Speech is clear and appropriate. Normal level of consciousness. Gait and coordination are normal. 5/5 strength in all extremities. PSYCH Normal mood and affect. Judgement/competence is appropriate Coding Level of Care Code New Pt Level 4 (71201) Diagnoses Fibroid uterus D25.9 Gallbladder polyp K82.4 Encounter to establish care Z76.89 Heartburn R12 Anemia D64.9 Time Spent (min) 45 Assessment & Plan Assessment & Plan (1) Fibroid uterus: Code(s): D25.9 - Leiomyoma of uterus, unspecified Category: Medical Plan: - An ultrasound will be ordered to evaluate the fibroids. - A referral will be placed to COLD TYPE COMPOSING MACHINE OPERATOR for further evaluation and management of symptomatic fibroids causing pain. (2) Gallbladder polyp: Code(s): K82.4 - Cholesterolosis of gallbladder Category: Surgical Plan: - An abdominal ultrasound will be ordered for follow-up evaluation of the gallbladder polyps, as the recommended 1-year follow-up was missed. (3) Encounter to establish care: Code(s): Z76.89 - Persons encountering health services in other specified circumstances Category: Medical Plan: Patient's Past, surgical, medical, family history was reviewed. General labs including CBC, CMP, Lipid panel, TSH, A1C were ordered. Medications refilled. Recent labs, imaging, documents, chart reviewed. - Rest of general health maintenance will be addressed during PE. (4) Heartburn: Code(s): R12 - Heartburn Category: Surgical Plan: - The patient will proceed with a fluoroscopy scheduled for tomorrow. - She will continue to follow up with her GI specialist for further management, including a planned EGD and colonoscopy. - Continue taking omeprazole as needed for symptom relief. (5) Anemia: Code(s): D64.9 - Anemia, unspecified Category: Medical Plan: - Lab workup will be ordered to investigate the anemia, including a CBC, ferritin, iron studies, vitamin B12, and folic acid. - Plan for EGD and colonoscopy with GI. Plan I have explained to the patient that we are establishing care today and will address her multiple ongoing health concerns. We discussed the plan for a comprehensive lab workup, including an anemia panel, lipid panel, thyroid function, and blood sugar, which should be done while fasting. I will order an abdominal ultrasound to re-evaluate her gallbladder polyps and uterine fibroids, and I will place a referral to an COLD TYPE COMPOSING MACHINE OPERATOR for management of her symptomatic fibroids. We agreed she will proceed with her scheduled fluoroscopy and continue follow-up with her GI specialist for her reflux symptoms. We will have a follow- up appointment in four weeks to review all the results, with a plan for a complete physical exam in three months. Orders: Orders US abdomen limited Today Eunice Yates MD K82.4 - Cholesterolosis of gallbladder Complete Blood Count no Diff Today Eunice Yates MD D64.9 - Anemia, unspecified, Z00.00 - Encounter for general adult medical examination without abnormal findings Comprehensive Met. Panel Today Eunice Yates MD D64.9 - Anemia, unspecified, Z00.00 - Encounter for general adult medical examination without abnormal findings Ferritin Today Eunice Yates MD D64.9 - Anemia, unspecified, Z00.00 - Encounter for general adult medical examination without abnormal findings IRON PROFILE Today Eunice Yates MD D64.9 - Anemia, unspecified, Z00.00 - Encounter for general adult medical examination without abnormal findings Hepatitis C Antibody Reflex Today Eunice Yates MD D64.9 - Anemia, unspecified, Z00.00 - Encounter for general adult medical examination without abnormal findings HIV Ab/Ag Today Eunice Yates MD D64.9 - Anemia, unspecified, Z00.00 - Encounter for general adult medical examination without abnormal findings Lipid Panel Today Eunice Yates MD D64.9 - Anemia, unspecified, Z00.00 - Encounter for general adult medical examination without abnormal findings TSH reflex Free T4 Today Eunice Yates MD D64.9 - Anemia, unspecified, Z00.00 - Encounter for general adult medical examination without abnormal findings Vitamin B12 and Folate Today Eunice Yates MD D64.9 - Anemia, unspecified, Z00.00 - Encounter for general adult medical examination without abnormal findings Reticulocyte Count Today Eunice Yates MD D64.9 - Anemia, unspecified, Z00.00 - Encounter for general adult medical examination without abnormal findings Vitamin D 25-OH Total Today Eunice Yates MD Z00.00 - Encounter for general adult medical examination without abnormal findings Hemoglobin A1c Today Eunice Yates MD D64.9 - Anemia, unspecified, Z00.00 - Encounter for general adult medical examination without abnormal findings Referrals C[employer] COMPOSING MACHINE OPERATOR Referral Eunice Yates MD D25.9 - Leiomyoma of uterus, unspecified Medications: Changed From omeprazole 20 mg PO DAILY 90 days 90 caps 1RF To omeprazole 20 mg PO DAILY PRN Ale Gillis MD
[2025-05-20 12:58] VITALS: BP 138/80; RESP 16; TEMP 36.5; BMI 23.2
== END 2025-05-20 13:51 | disposition home or self-care (01) ==
LOC: HO.HMCH 12:52
PROVIDERS: Visit Provider Internal Medicine
DX: D25.9 Leiomyoma of uterus, unspecified (principal); K82.4 Cholesterolosis of gallbladder; Z76.89 Persons encountering health services in other specified circumstances; R12 Heartburn; D64.9 Anemia, unspecified

== ENCOUNTER 2025-05-21 09:44 | Outpatient (REF) | payer BC, SELFPAY ==
--- NOTE | ~2025-05-21 | FL_ITS ---
EXAMINATION: XR BARIUM SWALLOW CLINICAL INFORMATION: Abdominal distention COMPARISON: None available. TECHNIQUE: Barium swallow was performed using thin and thick barium and effervescent granules. Barium tablet was also administered. FINDINGS: The swallowing mechanism is normal. No aspiration or penetration. Esophageal motility is normal. There is a small sliding-type hiatal hernia. There is minimal gastroesophageal reflux. No mass, stricture or mucosal irregularity seen. Barium tablet passed freely into the stomach. The visualized stomach and duodenum are unremarkable. FLUOROSCOPY TIME: 1 minute 23 seconds DOSE AREA PRODUCT: 762 uGy-m2 (microgray-meter squared) FL/FL barium swallow with air IMPRESSION: Small sliding hiatal hernia and minimal gastroesophageal reflux. Electronically signed by: Zelda Foster MD 05/21/2025 12:30 PM [facility] [place]
[2025-05-21 10:57] LABS: Hematocrit 30.7 % (37.0-47.0); Hemoglobin 9.0 g/dl (12.0-16.0); Mean Corpuscular HGB Conc 29.3 g/dl (31.0-35.0); Mean Corpuscular Hemoglobin 20.7 pg (27.0-33.0); Mean Corpuscular Volume 70.6 fL (80.0-98.0); NRBC Abs Auto 0.000 X10*3/uL (0.0-0.012); NRBC Pct Auto 0.0 /100WBC (0.0-0.2); Platelet Count 416 X10*3/uL (160-400); Red Blood Count 4.35 X10*6/uL (4.20-5.50); Reticulocytes Absolute 0.064 X10*6/uL (0.026-0.095); White Blood Count 6.4 X10*3/uL (4.8-10.8)
[2025-05-21 12:17] LABS: Folate 9.7 ng/mL (> or = 4.0); Vitamin B12 530 pg/mL (200-900)
[2025-05-21 12:30] LABS: Alanine Aminotransferase 16 U/L (0-31); Albumin Level 4.6 g/dL (3.5-5.0); Alkaline Phosphatase 78 U/L (39-117); Anion Gap 13 (12-20); Aspartate Amino Transferase 17 U/L (5-31); Blood Urea Nitrogen 13 mg/dL (9-16); Calcium 9.1 mg/dL (8.4-10.2); Carbon Dioxide 25 mmol/L (22-29); Chloride 104 mmol/L (96-108); Cholesterol 218 mg/dL (<200); Estimated Glomerular Filt Rate > 60; Ferritin 5 ng/mL (10-250); HDL Cholesterol 59 mg/dL (>40); Iron 33 mcg/dL (30-160); Percent Iron Saturation 8 % (15-50); Potassium 4.2 mmol/L (3.3-5.1); Sodium 138 mmol/L (135-145); Total Iron Binding Capacity 390 mcg/dL (228-428); Total Protein 8.1 g/dL (6.5-8.0); Triglycerides 172 mg/dL (<150); Unsaturated Iron Binding 357 ug/dL
[2025-05-21 13:06] LABS: HIV Num 1 0.08 S/CO (0.00-0.99); ~HepC Num1 0.11 S/CO (0.00-0.79); ~Hepatitis C Antibody Nonreactive (Nonreactive)
== END 2025-05-21 09:45 ==
LOC: HO.XRAY 09:44
PROVIDERS: Absent Provider Internal Medicine; PCP Internal Medicine; Visit Provider Internal Medicine
DX: Z00.00 Encounter for general adult medical examination without abnormal findings (principal); D64.9 Anemia, unspecified; R14.0 Abdominal distension (gaseous); R12 Heartburn; Z11.59 Encounter for screening for other viral diseases; Z13.1 Encounter for screening for diabetes mellitus; Z11.4 Encounter for screening for human immunodeficiency virus [HIV]; Z13.6 Encounter for screening for cardiovascular disorders; Z13.21 Encounter for screening for nutritional disorder
CPT/HCPCS: 36415; 74221; 80053; 80061; 82306; 82607; 82728; 82746; 83036; 83540; 84443; 85027; 85045; 86803; 87389

== ENCOUNTER → 2025-05-21 09:47 | Outpatient (BNV) | payer BC, SELFPAY | PROVIDERS: Absent Provider Internal Medicine; PCP Internal Medicine; Visit Provider Radiology Diagnostic Radiology | DX: R14.0 Abdominal distension (gaseous) (principal); K44.9 Diaphragmatic hernia without obstruction or gangrene | CPT/HCPCS: 74221 ==